=== PATIENT | female | born 1955 | race Caucasian/White ===

== ENCOUNTER 2019-07-08 07:14 | Day surgery (SDC) | payer OTHER ==
[2019-07-08] MEDS: LACTATED RINGER'S 1,000 ML IV (08:22)
[2019-07-08] MEDS ORDERED: ROCURONIUM 50 MG INJ (08:26)
[2019-07-08] MEDS ORDERED: DESFLURANE 15 MIN (08:26)
[2019-07-08] MEDS ORDERED: FENTAnyl 50 MCG/ML VIAL (08:26)
[2019-07-08] MEDS ORDERED: CEFAZOLIN 1 GM INJ (08:26)
[2019-07-08] MEDS ORDERED: NEOSTIGMINE 3 MG/3 ML SYRINGE (08:26)
[2019-07-08] MEDS ORDERED: MIDAZOLAM 1 MG/ML 2 ML INJ (08:26)
[2019-07-08] MEDS ORDERED: ONDANSETRON 4 MG INJ (08:26)
[2019-07-08] MEDS ORDERED: DEXAMETHASONE 4 MG/ML 5 ML INJ (08:26)
[2019-07-08] MEDS ORDERED: PROPOFOL 20 ML (08:26)
[2019-07-08] MEDS ORDERED: GLYCOPYRROLATE 0.4 MG INJ (08:26)
[2019-07-08] MEDS ORDERED: LIDOCAINE 1% (MPF) 30 ML INJ (08:59)
[2019-07-08] MEDS: BUPIVACAINE 0.25% (MPF) 30 ML INJ (09:29)
[2019-07-08] MEDS ORDERED: morphine 2 MG INJ IV (10:00)
[2019-07-08] MEDS ORDERED: OXYCODONE/ACETAMINOPHEN (5/325) TAB PO (10:00)
[2019-07-08] MEDS ORDERED: ONDANSETRON 4 MG INJ IV (10:00)
[2019-07-08] MEDS: OXYCODONE/ACETAMINOPHEN (5/325) TAB PO (10:59)
== END 2019-07-08 12:15 | disposition home or self-care (01) ==
LOC: SDS 07:14
DX: D17.21 Benign lipomatous neoplasm of skin and subcutaneous tissue of right arm (principal)
CPT/HCPCS: 21552; 88307